=== PATIENT | female | born 1960 | race Caucasian/White ===

== ENCOUNTER 2022-04-22 16:43 | Emergency (ER) | payer OTHER, SELFPAY ==
--- NOTE | ~2022-04-22 | XR_ITS ---
XR chest 2V DATE: 04/22/2022 18:30 INDICATION: Fever, shortness of breath, cough TECHNIQUE: 2 views COMPARISON: None FINDINGS: Normal heart size. Aortic arch calcification. No hilar or mediastinal enlargement. No pulmonary infiltrate or consolidation, pleural effusion or pulmonary vascular congestion or pneumo thorax. Mild thoracic scoliosis and mild degenerative spurring of the thoracic and included upper lumbar spin e IMPRESSION: No active cardiopulmonary disease Reviewed, dictated and finalized at location [facility]
[2022-04-22 17:09] VITALS: BP 131/86; PULSE 117; RESP 16; TEMP 37.1; O2SAT 99
--- NOTE | 2022-04-22 17:41 | ED.URI ---
HPI - URI/Sore Throat General Chief Complaint: Upper Respiratory Infection Stated Complaint: Fever, Face, Chest pain Source: patient Mode of arrival: ambulatory Limitations: no limitations History of Present Illness HPI Narrative: 8-year-old female presents to [facility] with complaints of sinus pressure, nasal congestion, fevers up to 101 and postnasal drip since last night. Patient reports that she also has noticed intermittent chest congestion. Patient is a nonsmoker. Patient denies sick contacts. Patient reports that she called her [id number] who is a cardiothoracic nurse who did not think her chest symptoms were cardiac related. patient has taken [id number] Advil with minimal relief. MD elicited complaint: rhinorrhea and nasal congestion Able to tolerate fluids by mouth: Yes Exacerbating factors: nothing Treatments prior to arrival: acetaminophen Related Data Home Medications Medication Instructions Recorded Confirmed ergocalciferol (vitamin D2) 1,250 1,250 mcg DIRECTED 04/22/22 04/22/22 mcg (50,000 unit) capsule levothyroxine 75 mcg tablet 75 mcg DIRECTED 04/22/22 04/22/22 rosuvastatin 10 mg tablet 10 mg DIRECTED 04/22/22 04/22/22 Allergies Allergy/AdvReac Type Severity Reaction Status Date / Time No Known Allergies Allergy Verified 04/22/22 17:23 Review of Systems Constitutional: Constitutional: Denies chills, Denies fatigue, Reports fever(s) and Denies weakness ENT: Denies dysphagia, Denies vertigo, Denies dizziness, Reports nasal congestion and Denies sore throat Respiratory: Respiratory: Reports chest congestion, Denies cough, Denies dyspnea and Denies wheezing Gastrointestinal: Gastrointestinal: Denies diarrhea, Denies nausea and Denies vomiting Integumentary/Breasts: Skin/Breast: Denies rash Neurologic: Denies vertigo, Denies dizziness, Denies syncope and Denies headache(s) PMFSH Comments At time of signature, I agree with nursing past medical, surgical, social and family history. There is no relevant family history pertinent to the presenting complaint. Exam Const: General: healthy appearing, no acute distress and alert Nutritional Appearance: well nourished Orientation/consciousness: patient oriented x3 Limitations: no limitations HENMT: Head: normal to inspection Ears: external ears normal, TM's normal bilaterally and EAC's normal Face/Nose/Sinus: Normal external nose present and Normal nares present Face and sinus: normal facial exam and sinus tenderness frontal Mouth: Yes moist mucous membranes Throat: posterior oropharynx normal and uvula midline Resp: Effort & Inspection: normal respiratory effort and not labored Auscultation: clear to auscultation bilaterally, no crackles, no rales, no rhonchi and no wheezes Cardio: Rate: regular rate Rhythm: regular rhythm Heart sounds: no murmurs Skin: General skin exam: normal color Rashes: no rashes Neuro: General: patient oriented x3 Speech: normal speech Psych: Affect: normal affect Attitude: cooperative Course Course Level of Care: Express Care Visit Vital Signs Vital signs: Vital Signs Temperature 37.1 C 04/22/22 17:09 Pulse Rate 117 H 04/22/22 17:09 Respiratory Rate 16 04/22/22 17:09 Blood Pressure 131/86 04/22/22 17:09 Pulse Oximetry 99 04/22/22 17:09 Oxygen Delivery Room Air 04/22/22 17:09 Temperature 37.1 C 04/22/22 17:09 Pulse Rate 117 H 04/22/22 17:09 Respiratory Rate 16 04/22/22 17:09 Blood Pressure 131/86 04/22/22 17:09 Pulse Oximetry 99 04/22/22 17:09 Oxygen Delivery Room Air 04/22/22 17:09 MDM - URI/Sore Throat MDM Narrative Medical decision making narrative: discussed negative COVID results, negative chest x-ray results and positive influenza results with patient. Patient denies need for cough medication. Patient agrees to take Tamiflu as prescribed. Patient agrees to use inhaler as needed. Patient agrees to monitor symptoms clos
== END 2022-04-22 18:57 | disposition home or self-care (01) ==
PROVIDERS: Emergency Provider Nurse Practitioner Family; PCP Internal Medicine
DX: J10.1 Influenza due to other identified influenza virus with other respiratory manifestations (principal); Z20.822 Contact with and (suspected) exposure to COVID-19; E78.00 Pure hypercholesterolemia, unspecified; E03.9 Hypothyroidism, unspecified
CPT/HCPCS: 71046; 87426; 87804; 99213; C9803; G0463

== ENCOUNTER 2022-05-05 15:55 | Emergency (ER) | payer OTHER, SELFPAY ==
[2022-05-05] VITALS (11 sets, daily range): BP systolic 110–133; BP diastolic 59–85; PULSE 113–143; RESP 9–25; TEMP 36.4; O2SAT 97–100
[2022-05-05] MEDS: HYOSCYAMINE SULFATE 0.125 MG TABLET PO (17:48)
[2022-05-05] MEDS: SODIUM CHLORIDE 0.9% IV 1,000 ML 999 ML IV CONT (17:48)
[2022-05-05] MEDS: GLUCAGON FOR INJ 1 MG VIAL IV PUSH (17:48)
--- NOTE | 2022-05-05 17:55 | ED.GENADULT ---
HPI - General Adult General Chief complaint: Unspecified Stated complaint: foreign body throat Time Seen by Provider: 05/05/22 17:36 History of Present Illness HPI narrative: Patient is a 62-year-old female who presents ER with concerns for food impaction. She was eating a piece of ham at 1 PM when she felt to get stuck. She is tried to drink water since then and the water comes back up immediately. She has a discomfort in her throat and chest. She is unable to belch. She has tried to induce vomiting. No history of impaction requiring dilation or EGD in the past. She does report that evidently some food will get stuck but she is able to clear it. Related Data Home Medications Medication Instructions Recorded Confirmed ergocalciferol (vitamin D2) 1,250 1,250 mcg DIRECTED 04/22/22 04/22/22 mcg (50,000 unit) capsule levothyroxine 75 mcg tablet 75 mcg DIRECTED 04/22/22 04/22/22 rosuvastatin 10 mg tablet 10 mg DIRECTED 04/22/22 04/22/22 Allergies Allergy/AdvReac Type Severity Reaction Status Date / Time No Known Allergies Allergy Verified 05/05/22 17:52 Review of Systems Constitutional: Constitutional: Reports no additional constitutional complaints ENT: Reports system reviewed and no additional complaints, except as documented Gastrointestinal: Gastrointestinal: Reports no additional gastrointestinal complaints PMFSH Past Medical History Medical History (Updated 05/05/22 @ 18:55 by Jonny Tran MD) Hyperlipidemia Hypothyroidism Surgical History Surgical History (Updated 05/05/22 @ 17:59 by Jonny Tran MD) History of hysterectomy History of shoulder surgery Exam Narrative: GENERAL: Well-appearing, well-nourished, and in no acute distress. HEAD: Normocephalic, atraumatic. EYES: PERRL and EOMI. ENT: Mucous membranes moist. CHEST: Clear to auscultation. No respiratory distress. HEART: Tachycardic and regular. Normal peripheral pulses. ABDOMEN: Soft, nontender, nondistended. NEURO: Alert and oriented x3. PSYCH: Normal mood and affect. Course Course Emergency Course: We were unsuccessful getting the food impaction to remove using glucagon, Levsin, and Zofran. Patient is also tried some clear soda without success. I have discussed the case with GI at [facility] in the [facility]. There available and willing to perform the procedure necessary. I have spoken with Dr. Farah in the emergency room at [facility] who is excepted the patient for transfer. Patient will be transferred by private vehicle and I feel comfortable with this, she has been protecting her airway without issue, she has no hypoxia. She will be given an emesis bag for the transfer. Vital Signs Vital signs: Vital Signs Temperature 97.6 F 05/05/22 15:59 Pulse Rate 129 H 05/05/22 15:59 Respiratory Rate 20 05/05/22 15:59 Blood Pressure 133/84 05/05/22 15:59 Pulse Oximetry 99 05/05/22 15:59 Oxygen Delivery Room Air 05/05/22 15:59 Temperature 97.6 F 05/05/22 15:59 Pulse Rate 116 H 05/05/22 18:46 Respiratory Rate 9 L 05/05/22 18:46 Blood Pressure 123/67 05/05/22 18:46 Pulse Oximetry 97 05/05/22 18:46 Oxygen Delivery Room Air 05/05/22 15:59 Medical Decision Making Vital Signs Vital Signs: Vital Signs Temperature 97.6 F 05/05/22 15:59 Pulse Rate 129 H 05/05/22 15:59 Respiratory Rate 20 05/05/22 15:59 Blood Pressure 133/84 05/05/22 15:59 Pulse Oximetry 99 05/05/22 15:59 Oxygen Delivery Room Air 05/05/22 15:59 Temperature 97.6 F 05/05/22 15:59 Pulse Rate 116 H 05/05/22 18:46 Respiratory Rate 9 L 05/05/22 18:46 Blood Pressure 123/67 05/05/22 18:46 Pulse Oximetry 97 05/05/22 18:46 Oxygen Delivery Room Air 05/05/22 15:59 Discharge Plan Discharge Clinical Impression: Food impaction of esophagus Patient Disposition: Acute Care Hospital Condition: Stable Prescriptions: No Action levothyroxine
[2022-05-05] MEDS: ONDANSETRON INJ 4 MG/2 ML VIAL IV PUSH (18:01)
== END 2022-05-05 18:51 | disposition short-term general hospital (02) ==
PROVIDERS: Emergency Provider Emergency Medicine; PCP Internal Medicine
DX: T18.128A Food in esophagus causing other injury, initial encounter (principal); E78.5 Hyperlipidemia, unspecified; E03.9 Hypothyroidism, unspecified; Z90.710 Acquired absence of both cervix and uterus
CPT/HCPCS: 96361; 96374; 96375; 99284; A9270; J1610; J2405; J7030

== ENCOUNTER 2022-07-25 00:23 | Day surgery (SDC) | payer OTHER, SELFPAY ==
[2022-07-11 13:06] VITALS: BMI 27.1
--- NOTE | 2022-07-24 16:43 | P.HP_ITS ---
History of Present Illness History of Present Illness Consent: Risks, benefits, and alternatives have been discussed and questions answered. Patient agrees to proceed with procedure. Chief complaint: Dysphagia, Neoplasm screening Narrative: Charlene Morelos is a 62 year old female Here for investigation of dysphagia. She in fact had a food bolus impaction on Kallie. She was treated in [place] where she was intubated for removal of a large impaction. She was noted to have a stricture. She continues to have dysphagia. She is taking omeprazole 20 mg daily. She is due for colon cancer screening. Review of Systems Review of Systems: All systems reviewed & are unremarkable except as noted in HPI and below PMFSH Past Medical History Medical History Hyperlipidemia Hypothyroidism Surgical History Surgical History History of hysterectomy History of shoulder surgery Social History Social History Smoking status: Never smoker Alcohol intake: current Drinks per week: 3 Substance use: never Substance use type: does not use Living arrangements: with family Spiritual care concerns: No Meds Home Medications and Allergies Home Medications Medication Instructions Recorded Confirmed Type ergocalciferol (vitamin D2) 1,250 1,250 mcg DIRECTED 04/22/22 07/11/22 History mcg (50,000 unit) capsule levothyroxine 75 mcg tablet 75 mcg DIRECTED 04/22/22 07/11/22 History rosuvastatin 10 mg tablet 10 mg DIRECTED 04/22/22 07/11/22 History omeprazole 20 mg capsule,delayed 20 mg PO DAILY 06/06/22 07/11/22 History release Aspirin Child 81 mg PO DAILY 07/11/22 07/11/22 History Allergies Allergy/AdvReac Type Severity Reaction Status Date / Time No Known Allergies Allergy Verified 07/25/22 06:54 Exam Const: General: alert Orientation/consciousness: patient oriented x3 Resp: Auscultation: clear to auscultation bilaterally Cardio: Rhythm: regular rhythm GI: GI Palp: Yes Soft to palpation and No Tenderness to palpation present (GI) Neuro: General: patient oriented x3 Assessment and Plan Assessment and plan (1) Dysphagia: Code(s): R13.10 - Dysphagia, unspecified Status: Acute Assessment and Plan: EGD with possible biopsy or dilatation or cautery. (2) Colon cancer screening: Code(s): Z12.11 - Encounter for screening for malignant neoplasm of colon Status: Acute Assessment and Plan: Colonoscopy with possible biopsy or polypectomy or cautery or injection of substances.
[2022-07-25 06:55] VITALS: BP 128/83; PULSE 108; RESP 18; TEMP 36.6; O2SAT 100
--- NOTE | 2022-07-25 06:58 | SUR.PREOP ---
DR MATA NOTIFIED OF PT'S HEART RATE 108, BLOOD PRESSURE 128/83. PT STATES HER HEART RATE RUNS HIGHER WHENEVER SHE IS IN A HOSPITAL OR DOCTOR SETTING. NO NEW ORDERS RECEIVED. DR MATA WILL SEE PT.
--- NOTE | 2022-07-25 07:07 | P.PNAN_ITS ---
Anes - Initial Pre Proc Eval Procedure: Operation Date: 07/25/22 08:15 Proposed Procedures p Esophagogastroduodenoscopy & Screening Colonoscopy - Kunal Marie MD Date/Time: 07/25/22 07:07 Surgeon: Kunal Marie MD Pre Op Diagnosis: Dysphagia, Neoplasm screening Patient Data Age: 62 Gender: F Height: 1.52 m Weight: 63 kg Last Vital Signs Temp 36.6 C 07/25/22 06:55 Pulse 108 H 07/25/22 06:55 Resp 18 07/25/22 06:55 BP 128/83 07/25/22 06:55 Pulse Ox 100 07/25/22 06:55 O2 Del Method Room Air 07/25/22 06:55 Allergies Allergy/AdvReac Type Severity Reaction Status Date / Time No Known Allergies Allergy Verified 07/25/22 06:54 Home Medications Medication Instructions Recorded Confirmed Type ergocalciferol (vitamin D2) 1,250 1,250 mcg DIRECTED 04/22/22 07/11/22 History mcg (50,000 unit) capsule levothyroxine 75 mcg tablet 75 mcg DIRECTED 04/22/22 07/11/22 History rosuvastatin 10 mg tablet 10 mg DIRECTED 04/22/22 07/11/22 History omeprazole 20 mg capsule,delayed 20 mg PO DAILY 06/06/22 07/11/22 History release Aspirin Child 81 mg PO DAILY 07/11/22 07/11/22 History Patient hx anesthesia problems: none Family hx anesthesia problems: none Results Review: All pre-operative results and documents have been reviewed as part of the pre- operative evaluation. [facility] Past Medical History Medical History Hyperlipidemia Hypothyroidism Surgical History Surgical History History of hysterectomy History of shoulder surgery Social History Social History Smoking status: Never smoker Alcohol intake: current Drinks per week: 3 Substance use: never Substance use type: does not use Living arrangements: with family Spiritual care concerns: No Anes - Eval Final PreProcedure Day of Procedure 07/25/22 07:07 Patient weight: overweight Heart: regular rate and rhythm Lungs: clear to auscultation Airway: Mallampati scale class II Neurological: alert and oriented Last oral intake: >/= 8 hours ASA classification: II Emergent: no Anesthetic plan: proceed Anesthesia type and monitoring: general GIVS and standard monitoring Results Review: All pre-operative results and documents have been reviewed as part of the pre- operative evaluation. Informed Consent: The patient's anesthetic plan and its attendant risks and benefits were discussed with the patient/family/POA. Questions were solicited and answers provided to the satisfaction of the patient/family/POA.
[2022-07-25] MEDS: LACTATED RINGERS 1,000 ML 150 ML IV CONT (07:13)
--- NOTE | 2022-07-25 08:27 | SUR.OPER ---
EGD end 820 COLONOSCOPY START 826
[2022-07-25 08:39] VITALS: BP 88/63; PULSE 85; RESP 18; O2SAT 100
[2022-07-25 08:49] VITALS: BP 89/65; PULSE 89; RESP 19; O2SAT 100
[2022-07-25 08:59] VITALS: BP 96/60; PULSE 88; RESP 19; O2SAT 100
== END 2022-07-25 09:09 | disposition home or self-care (01) ==
PROVIDERS: PCP Internal Medicine; Visit Provider Internal Medicine Gastroenterology
PROC: 0DJ08ZZ Inspection of Upper Intestinal Tract, Via Natural or Artificial Opening Endoscopic (ICD-10-PCS; CPT 43235; principal; 2022-07-25 08:15)
DX: Z12.11 Encounter for screening for malignant neoplasm of colon (principal); K22.2 Esophageal obstruction; K44.9 Diaphragmatic hernia without obstruction or gangrene; E03.9 Hypothyroidism, unspecified; E78.5 Hyperlipidemia, unspecified
CPT/HCPCS: 45378; 43249; 88305; C1726; J7120